=== PATIENT | female | born 1950 | race African-American/Black ===

== ENCOUNTER → 2018-08-18 | Outpatient (CLI) | payer OTHER ==
[~2018-08-18] VITALS: Ht 165.1 cm; Wt 131.5 kg
[~2018-08-18] MED LIST: ALLEGRA-D 12 H1 EAC1 OR; CALCIUM 500 +1 EAC5 OR; COLACE100 MG; DITROPAN XL10 MG PO; FISH OIL 1,001000 M2 PO; FLONASE 0.05%50 MCG NASAL; GLUCOPHAGE500 MG PO; GLUCOSAMINE-CH1 EA33 OR; HYDROCHLOROTHIA25 M1 OR; HYDROCODON-ACE1 EACH OR; LOSARTAN-HCTZ1 EACH PO; MOBIC7.5 MG PO; MULTIVITAMINS1 EAC7 PO; NEURONTIN 300300 M1 PO; OXYBUTYNIN 5 MG5 M1 OR; PERCOCET PO; ROBAXIN 750 MG750 M1 PO; SYNTHROID137 MC1 PO; SYNTHROID137 MCG OR; TRAMADOL 50 MG50 MG OR; TYLENOL EXTRA500 MG PO; ZETIA10 MG PO
--- NOTE | ~2018-08-18 | P ---
[facility] [place] [address] PROCEDURE REPORT Name: ALANNA ELIZABETHMARVA [id number] Admission: 08/18/18 Attend Phys: Ian Hughes Discharge: Date of : 54 Report #: [id number] THIS REPORT FOR: //name// CC: Ian Mcneal MD DATE OF SERVICE: 08/18/2018 PROCEDURE PERFORMED: Colonoscopy. HISTORY OF PRESENT ILLNESS: The patient is a 68-year-old female who presents today for screening colonoscopy. She has had last colonoscopy by Dr. Mccormack in 2011 was essentially normal. She has a family history of colon cancer in a sister. She denies any symptoms at this time. DESCRIPTION OF PROCEDURE: The risks and benefits of the procedure were explained to the patient, those risks including but not limited to bleeding, perforation, the risk of sedation. She understood these risks and gave informed consent. Sedation was given using propofol per anesthesia. Next, a digital rectal exam was initially performed, which was normal. Next, using a standard Olympus colonoscope, the scope was placed in the patient's anus and advanced under direct vision to the cecum. The overall prep was excellent. The cecum and ileocecal valve were normal in appearance. Ascending, transverse, descending and sigmoid colon were all normal. The rectal mucosa was normal. On retroflexion, small nonbleeding internal hemorrhoids were noted. The scope was then withdrawn and the procedure terminated. The patient tolerated the procedure well. IMPRESSION: 1. Small internal hemorrhoids. 2. Otherwise, normal colonoscopy. RECOMMENDATIONS: Repeat colonoscopy in 5 years. Thank you for allowing me to participate in her care. <ELECTRONICALLY SIGNED> By: Ian Michaels MD 08/20/18 0808 [id number] [id number] Ian Michaels MD /nt
== END | disposition home or self-care (01) ==
LOC: GI 08:12
DX: Z12.11 Encounter for screening for malignant neoplasm of colon (principal); K64.8 Other hemorrhoids; Z80.0 Family history of malignant neoplasm of digestive organs; I10 Essential (primary) hypertension; E78.5 Hyperlipidemia, unspecified; K21.9 Gastro-esophageal reflux disease without esophagitis; G47.33 Obstructive sleep apnea (adult) (pediatric); Z98.890 Other specified postprocedural states; Z90.710 Acquired absence of both cervix and uterus; Z96.651 Presence of right artificial knee joint; Z98.51 Tubal ligation status; Z79.899 Other long term (current) drug therapy; Z79.891 Long term (current) use of opiate analgesic
CPT/HCPCS: 62110; 62900

== ENCOUNTER → 2018-09-29 | Outpatient (CLI) | payer OTHER ==
[~2018-09-29] VITALS: Ht 165.1 cm; Wt 133.2 kg
[~2018-09-29] MED LIST changes: +ASPIR 8181 MG PO
--- NOTE | ~2018-09-29 | HPC ---
[facility] [address] [place] [address] PAIN MANAGEMENT CONSULTATION Name: MARVA COLINDRES [id number] Admission: 09/29/18 Attend Phys: Ramiro Pino MD Discharge: Date of : 54 Report #: [id number] THIS REPORT FOR: //name// CC: Ramiro Mcneal DATE OF SERVICE: 09/29/2018 CHIEF COMPLAINT: The pain is beginning to come back in my back like another injection before it gets bad. HISTORY: The patient is a 68-year-old female who has been seen in the pain clinic because of myofascial pain involving her low back area. She has undergone trigger point injection in 05/2018. Notes that she had significant improvement after that. She returns today and feels like another injection would be beneficial. She is experiencing pain which she rates as a 4-5 in the low back area. It exacerbated with activities of daily living such as walking, moving and bending. Feels that medications have been helpful that she ____ and this is beneficial. She has undergone a cardiac scan. She states that after her cardiac scan, it was noted that she did have high level of calcium. She is now being evaluated by cooking show host. She will follow up and undergo additional testing at [facility]. PAST MEDICAL HISTORY: Sleep apnea. ALLERGIES: No known drug allergies. MEDICATIONS: Aspirin 81 mg, fish oil 1000 mg, Flonase 0.05% nasal spray as needed, losartan/hydrochlorothiazide 50/12.5, levothyroxine 137 mcg, Ditropan XL 10 mg, Tylenol Extra Strength 500 mg 2 tabs daily p.r.n., oxycodone 5/325 one p.o. q.6 hours p.r.n., calcium, multivitamin. PAIN CLINIC ASSESSMENT/PQRS: 1. Osteoarthritis, the patient has some right knee surgery. The patient has osteoarthritic changes involving her neck, status post C5 fusion. 2. The patient is not being treated for rheumatoid arthritis. 3. Height 5 feet 5 inches, weight 293 pounds, BMI is 49.9. 4. Vital signs: Blood pressure 136/86, pulse 89, respiratory rate 20, room air saturation 98%. 5. Pain intensity 4-510. 6. Fall risk. The patient has not fallen in the last 3 months. 7. Blood thinner. The patient is not on a blood thinning medication. 8. Hypertension. The patient has been treated for hypertension. 9. Opioids greater than 6 weeks. The patient is not receiving opioid medications through the pain clinic. 10. Risk assessment tool, low [place] [address] PAIN MANAGEMENT CONSULTATION Name: MARVA COLINDRES Room #: REG [place] Escoto#: [id number] Admission: 09/29/18 Attend Phys: Ramiro Pino MD Discharge: Date of : 54 Report #: [id number] 11. Functional assessment tool. 12. Recreational drug use. The patient denies use of recreational drugs. 13. Tobacco. The patient has never smoked. 14. Alcohol: The patient occasionally drinks alcoholic beverages. PHYSICAL EXAMINATION: GENERAL: The patient is a well-developed, somewhat obese black female. She appears her stated age. She is alert and oriented x 3. Her affect is appropriate. Speech is fluent. HEENT: Normocephalic, atraumatic. Extraocular eye muscles intact. Sclerae nonicteric. Mucous membranes are moist. NECK: Without adenopathy or JVD. HEART: Regular rate. ABDOMEN: Protuberant. Bowel sounds present. EXTREMITIES: Upper extremity muscle strength judged to be 5/5 for the major muscle groups in the upper extremity without sensory changes. The patient without significant scoliosis, kyphosis or lordosis. The patient has pain and discomfort in the mid portion of her back in the left as well as the right paraspinous area near the sacrum. The patient has pain and discomfort. The pain, which is similar to that she has experienced in the pain, which is myofascial and improved with an injection in the past. Lower extremity muscle strength is judged to be 5/5 for the major muscle groups in the lower extremity. The patient is able to stand on her toes and heels. She does walk with a slight antalgic gait and does complain of pain and discomfort in lower portion of her back. IMPRESSION: 1. Myofascial pain, low back area improved in the past with myofascial injections. 2. Hypertension. 3. Elevated calcium score on heart exam. The patient to undergo further evaluation at [facility]. 4. Obesity. 5. Hypothyroidism. RECOMMENDATIONS: We discussed treatment options with the patient. At this juncture, she feels that she has continued to have the pain, which was problematic in May. This improved after trigger point injections to the low back area. She would like to proceed with another injection given that the pain improved. She had no complication from the procedure. We discussed the possible complication of the procedure, which could include but are not limited to infection, worsening of pain, no improvement in pain, bleeding, nerve damage and the patient elects to proceed. PROCEDURE NOTE: The patient was placed in the sitting position. She was perpendicular to the bed. She was placed under her feet for stability. The [address] [address] PAIN MANAGEMENT CONSULTATION Name: MARVA COLINDRES Room #: REG [facility] Escoto#: [id number] Admission: 09/29/18 Attend Phys: Ramiro Pino MD Discharge: Date of : 54 Report #: [id number] patient's back was sterilely prepped with a chlorhexidine solution. It was allowed to dry. The left and right low back area was sterilely prepped with a chlorhexidine solution. A 25-gauge needle was then advanced in the area of the left posterior superior iliac spine area with a reproduction of the trigger point near the gluteus italia and latissimus dorsi. Aspiration was negative. A total of 10 mL of 0.5% bupivacaine and 80 mg Depo-Medrol was injected. The patient tolerated the procedure well. The right side was treated in a like fashion. A 25-gauge needle was then advanced to the area of the gluteus italia and latissimus dorsi near the posterior superior iliac spine. Aspiration was negative. The patient states that this did reproduce her discomfort. A total of 10 mL of 0.5% bupivacaine and 80 mg Depo-Medrol was injected. The patient tolerated the procedure well. There were no complications. She remained in the Pain Clinic for an appropriate amount of time. Her pain decreased to 2 at the time of discharge. She will follow up in the future as needed. We would like to thank you for letting us participate in her care. The patient states that she is going to follow up with the Cardiac Department at [facility] to further evaluate the elevated calcium scan. By: 1744 0053 Ramiro Pino MD /nt
[2018-09-29 12:55] VITALS: BP 136/86
--- NOTE | 2018-09-29 13:07 | NUR ---
Pain Clinic Assessment: 1. History of Osteoarthritis: Not Applicable History of Rheumatoid Arthritis: Not Applicable 2. Height: 5 ft. 5 in. 165.1 cm. Weight: 293.6 lb. oz. 133.176 kg. Patient's BMI: 48.9 3. Vital Signs: BP: 136/86 Pulse: 89 Resp: 20 Temp: 02 Sat: 98 ECG Mon: 4. Pain Intensity: 4-5 5. Fall Risk: Dizziness: N Needs help standing or walking: N Fallen in the last 3 months: N Fall risk comments: 6. Patient on Blood Thinner: None 7. History of Hypertension: Y 8. Opioid Therapy greater than 6 weeks: N Opiate Contract Signed: 9. Risk Assessment Tool Provided: 10. Functional Assessment Tool: 11. Recreational Drug Use: Never Drug Type: Tobacco Use: Never Smoker Tobacco Type: Amount or Packs/day: How Many Years: Alcohol Use: Yes Frequency: Quant:
== END | disposition home or self-care (01) ==
LOC: PAIN 11:47
DX: M79.18 Myalgia, other site (principal); I10 Essential (primary) hypertension; E03.9 Hypothyroidism, unspecified; E66.09 Other obesity due to excess calories; E83.52 Hypercalcemia; G47.33 Obstructive sleep apnea (adult) (pediatric); Z79.82 Long term (current) use of aspirin; Z79.891 Long term (current) use of opiate analgesic; Z79.899 Other long term (current) drug therapy; Z98.890 Other specified postprocedural states

== ENCOUNTER → 2018-12-17 | Outpatient (CLI) | payer OTHER ==
[~2018-12-17] VITALS: Ht 165.1 cm; Wt 133.2 kg
[~2018-12-17] MED LIST changes: +ATORVASTATIN CA40 MG PO
--- NOTE | ~2018-12-17 | HPC ---
[facility] [address] [place] [address] PAIN MANAGEMENT CONSULTATION Name: MARVA COLINDRES Room #: REG [facility] Juan.#: [id number] Admission: 12/17/18 ������������������ Attend Phys: Ramiro Pino MD Discharge: ������������������ Date of : 54 Report #: [id number] THIS REPORT FOR: //name// CC: Ramiro Mcneal DATE OF SERVICE: 12/17/2018 CHIEF COMPLAINT: Return of back pain. HISTORY: The patient is a 68-year-old female, who has been followed in the pain clinic. She continues to have pain in her lower back area. She has undergone trigger point injections. She noticed that initially in 2018 the pain improved after the trigger point injection. She continues to have pain at this juncture with still ____. She rates her pain as a 4-5/10. She notes that activities such as walking are more problematic. She describes it as a shooting, pulling, radiating pain. Pain improves with medications and rest. She has returned today for trigger point injection to help improve her pain. CURRENT MEDICATIONS: Aspirin 81 mg, fish oil 1000 mg, Flonase 0.05% nasal spray, losartan/hydrochlorothiazide 50/12.5, levothyroxine 137 mcg, Ditropan XL 10 mg, Tylenol Extra Strength 500 mg 2 tablets daily p.r.n., oxycodone 5/325 one p.o. q.4-6 hours p.r.n., calcium, and multivitamin. ALLERGIES: No known drug allergies. PAIN CLINIC ASSESSMENT AND PQRS: 1. Osteoarthritis. The patient has had surgery on her right knee. She also complains of arthritic changes in her neck. Status post C5 fusion. The patient is not being treated for rheumatoid arthritis. 2. Pain intensity is 6/10. 3. Fall risk. The patient has not fallen in the last 3 months. 4. Blood thinner. The patient is not on a blood thinning medication. 5. Hypertension. The patient is being treated for hypertension. 6. Opioids greater than 6 weeks. The patient uses hydrocodone to help with pain control. 7. Risk assessment tool, low for opioid use. 8. Functional assessment tool. 9. Recreational drug use. The patient denies. 10. Tobacco: The patient has never smoked. 11. Alcohol. The patient drinks 1 alcoholic beverage on special occasions. PHYSICAL EXAMINATION: GENERAL: The patient is a well-developed, well-nourished, obese black female. She appears her stated age. She is alert and oriented x 3. Her affect is appropriate. Speech is fluent. Height is 5 feet 5 inches, weight is [address] [place] [address] PAIN MANAGEMENT CONSULTATION Name: MARVA COLINDRES Room #: REG CL Juan.#: [id number] Admission: 12/17/18 ������������������ Attend Phys: Ramiro Pino MD Discharge: ������������������ Date of : 54 Report #: [id number] pounds, and BMI is 49. VITAL SIGNS: Blood pressure is 159/99, pulse is 63, respiratory rate is 18, and room air saturation is 98%. HEENT: Normocephalic, atraumatic. Extraocular muscles intact. Sclerae nonicteric. Mucous membranes are moist. NECK: Without adenopathy or JVD. HEART: Regular rate. S1, S2. ABDOMEN: Protuberant. Bowel sounds present. EXTREMITIES: Upper extremity muscle strength is judged to be 5/5 for the major muscle groups in the upper extremity. The patient is without significant scoliosis, kyphosis, or lordosis. The patient has pain and discomfort in the lower portion of her back. There is pain in the left and right paraspinous area in the L5 sacral area. Movement increases her pain and discomfort. The patient has trigger points in the low back area. She is able to press on her back and did note where trigger points are in the lower portion of her back in the paraspinous muscles. IMPRESSION: 1. Myofascial pain, low back. 2. Hypertension. 3. Elevated calcium score. 4. Obesity. 5. Hypothyroidism. RECOMMENDATIONS: We have discussed treatment options with the patient. Risks and benefits of a trigger point injection were again reviewed. Possible complications of the procedure could include but are not limited to muscle pain, bleeding, nerve damage and the patient elects to proceed. PROCEDURE NOTE: The patient was assisted in getting on the examination table. She was set perpendicular to the table. A chair was placed under her feet for stability. Her back was sterilely prepped with a Betadine solution and allowed to dry. The left and right posterior paraspinous area in the L5 area were identified. Trigger points were noted. The left area was sterilely prepped. A 25-gauge needle was then advanced into the area of the left paraspinous area. The patient states that this did locate the trigger point. Aspiration was negative. A total of 8 mL of 0.5% bupivacaine and 80 mg of Depo-Medrol was injected. The contralateral side was treated in a like fashion. This area had been sterilely prepped with Betadine. In the paraspinous area near the gluteus italia and latissimus dorsi as was performed on the left side, trigger point was noted. Aspiration was negative. A total of 8 mL of 0.5% bupivacaine and 80 mg of Depo-Medrol was injected. The patient tolerated the procedure well. There were no complications. She remained in the pain clinic for an appropriate amount of time. She will follow up in the future as needed. [place] [address] [place] [address] PAIN MANAGEMENT CONSULTATION Name: MARVA COLINDRES Room #: REG [employer] [facility].#: [id number] Admission: 12/17/18 ������������������ Attend Phys: Ramiro Pino MD Discharge: ������������������ Date of : 54 Report #: [id number] We would like to thank you for letting us to participate in her care. We hope she continues to improve. ��������������������������������������������� ���������������������������������������� By: ��������������������������������������������� [id number] Ramiro Pino MD /CONSTANTINO
[2018-12-17 10:39] VITALS: BP 159/99
--- NOTE | 2018-12-17 10:44 | NUR ---
Pain Clinic Assessment: 1. History of Osteoarthritis: Not Applicable History of Rheumatoid Arthritis: Not Applicable 2. Height: 5 ft. 5 in. 165.1 cm. Weight: 293.6 lb. oz. 133.176 kg. Patient's BMI: 48.9 3. Vital Signs: BP: 159/99 Pulse: 63 Resp: 18 Temp: 02 Sat: 98 ECG Mon: 4. Pain Intensity: 6 5. Fall Risk: Dizziness: N Needs help standing or walking: N Fallen in the last 3 months: N Fall risk comments: 6. Patient on Blood Thinner: None 7. History of Hypertension: Y 8. Opioid Therapy greater than 6 weeks: N Opiate Contract Signed: 9. Risk Assessment Tool Provided: 10. Functional Assessment Tool: 11. Recreational Drug Use: Never Drug Type: Tobacco Use: Never Smoker Tobacco Type: Amount or Packs/day: How Many Years: Alcohol Use: Yes Frequency: Special Occasions Quant: 1
== END | disposition home or self-care (01) ==
LOC: PAIN 06:50
DX: M79.18 Myalgia, other site (principal); I10 Essential (primary) hypertension; E66.9 Obesity, unspecified; E03.9 Hypothyroidism, unspecified; M19.90 Unspecified osteoarthritis, unspecified site; Z68.42 Body mass index [BMI] 45.0-49.9, adult; Z79.82 Long term (current) use of aspirin; Z79.899 Other long term (current) drug therapy

== ENCOUNTER → 2019-08-03 | Outpatient (CLI) | payer OTHER ==
[~2019-08-03] VITALS: Ht 162.6 cm; Wt 134.4 kg
[~2019-08-03] MED LIST changes: +MEDROLDOSEPACK PO; +MOBIC15 MG PO; +VOLTAREN GEL 1100 G2 TOP; +ZANAFLEX4 MG PO
[2019-08-03 12:32] VITALS: BP 155/104
--- NOTE | 2019-08-03 12:38 | NUR ---
Pain Clinic Assessment: 1. History of Osteoarthritis: Not Applicable History of Rheumatoid Arthritis: Not Applicable 2. Height: 5 ft. 4 in. 162.6 cm. Weight: 296.4 lb. oz. 134.447 kg. Patient's BMI: 50.9 3. Vital Signs: BP: 155/104 Pulse: 81 Resp: 16 Temp: 02 Sat: 98 ECG Mon: 4. Pain Intensity: 8 5. Fall Risk: Dizziness: N Needs help standing or walking: Y Fallen in the last 3 months: N Fall risk comments: 6. Patient on Blood Thinner: None 7. History of Hypertension: Y 8. Opioid Therapy greater than 6 weeks: N Opiate Contract Signed: 9. Risk Assessment Tool Provided: LOW 10. Functional Assessment Tool: 11. Recreational Drug Use: Never Drug Type: Tobacco Use: Never Smoker Tobacco Type: Amount or Packs/day: How Many Years: Alcohol Use: Yes Frequency: Quant:
--- NOTE | 2019-08-04 16:10 | HPC ---
[facility] [address] [place] [address] PAIN MANAGEMENT CONSULTATION Name: MARVA COLINDRES Room #: REG [facility] Juan.#: [id number] Admission: 08/03/19 Attend Phys: Maki Arriaga Discharge: Date of : 54 Report #: [id number] THIS REPORT FOR: //name// CC: Maki Arriaga Jennifer Mcneal DATE OF SERVICE: 08/03/2019 CHIEF COMPLAINT: Low back pain, right hip pain and left foot pain. HISTORY OF PRESENT ILLNESS: This is a very pleasant 69-year-old female who returns to the pain clinic today for a refill of her medications. She reports that she recently fell through her deck at home and fractured her foot. She had been in a boot for a significant amount of time, has recently been released from wearing that. She is using a cane though presently to help with ambulation. She reports that she is having some ongoing left foot pain, but most of her pain is located in her back and hip today. She reports her pain is 8/10, mostly a sharp, pulling radiating pain that is worse with standing and walking. She feels that her medications are beneficial. She does use them very sparingly, but has been out for a while since her injury. The patient also reports she was unable to take the meloxicam. It did upset her stomach, but she has been using Voltaren gel that the Emergency Room gave her on her left foot and left knee. She finds this beneficial and is requesting a refill today. ALLERGIES: No known drug allergies. CURRENT LIST OF MEDICATIONS: Oxycodone 5/325 p.r.n., aspirin 81 mg, Lipitor 40 mg at bedtime, Flonase p.r.n., losartan/hydrochlorothiazide daily, Synthroid 137 mcg daily, Tylenol Extra Strength p.r.n. and [place] b.i.d. p.r.n., Voltaren gel p.r.n. PQRS: 1. She has osteoarthritis in her right knee and some arthritic changes in her neck. She denies being treated for rheumatoid arthritis. 2. Height is 5 feet 4 inches, weight is 296, BMI is 50. 3. Vital signs 155/104, pulse is 81, respirations 16, oxygen sat is 98. 4. Pain score is 8/10. 5. Denies dizziness. Using a cane currently and has fallen in the last 3 months. 6. The patient is not on any blood thinners, but does take medicine for hypertension. 7. Opioid therapy is greater than 6 weeks; but she does not have an opioid signed contract on our chart. 8. Risk assessment tool is low. Functional assessment is 40/70. 9. Recreational drug use, she denies. She is not a smoker and occasionally drinks alcohol. [address] [address] PAIN MANAGEMENT CONSULTATION Name: MARVA COLINDRES Room #: REG [facility] Tigist#: [id number] Admission: 08/03/19 Attend Phys: Maki Arriaga Discharge: Date of : 54 Report #: [id number] According to the prescription monitoring system, the patient is filling appropriately for her medications from Dr. Pino. She did fill a small oxycodone script from her surgeon when she fractured her foot. PHYSICAL EXAMINATION: GENERAL: This is a well-developed, well-nourished, morbidly obese 69-year-old female who appears her stated age, placing her current pain score at 8/10. She is alert and orientated and her affect is appropriate. HEENT: Normocephalic, atraumatic. Extraocular eye muscles are intact. Mucous membranes are moist. NECK: Without adenopathy or JVD. EXTREMITIES: Lower extremity strength judged to be 5/5 in all major muscle groups. She is without significant scoliosis, kyphosis or lordosis. She has discomfort in the lower portion of her lumbar spine that radiates into her right hip. She has pain in her left knee that has small amount of edema present. Pain in her left foot with no edema noted. IMPRESSION: 1. Myofascial pain, low back pain. 2. Hypertension. 3. Recent fracture of her left foot with ongoing pain issues. 4. Obesity. PLAN: 1. We discussed treatment options with the patient today. The patient finds trigger points very beneficial that she has had in the past, but she does not feel that currently she is to the point of needing another injection from Dr. Pino, but will call when needed. She is needing refills. She finds the oxycodone very beneficial. Does not take them on a daily basis. She tries to keep active as possible and does not have any daytime sleepiness or constipation issues from this medication. Today refills of 5/325 oxycodone given for #60 pills. This may last the patient several months as has prior. 2. The patient reports she was unable to take many nonsteroidal anti-inflammatories because they do upset her stomach. She has been given a Voltaren gel for her left knee and left ankle in the Emergency Room. We will refill that medication, send that electronically to the pharmacy. The patient encouraged to use this 3 times a day to aid in discomfort. 3. We did discuss the patient's hypertension today, she is on medications and does take them on a daily basis. I encouraged her to try to take her blood pressure daily at home. If it continues to be elevated as it is today at 155/104, she needs to contact her primary doctor to see about adjustment in her [facility] [address] [place] [address] PAIN MANAGEMENT CONSULTATION Name: MARVA COLINDRES Room #: REG [facility] Juan.#: [id number] Admission: 08/03/19 Attend Phys: Maki Arriaga Discharge: Date of : 54 Report #: [id number] medications. She verbalizes understanding. 4. The patient is seen in collaboration with Dr. Mika Pino. <ELECTRONICALLY SIGNED> By: Maki Arriaga 08/04/19 1610 1405 1717 Maki Arriaga /nt
== END ==
LOC: PAIN 06-08 07:04
DX: M79.18 Myalgia, other site (principal); I10 Essential (primary) hypertension; E66.9 Obesity, unspecified

== ENCOUNTER → 2019-09-07 | Outpatient (CLI) | payer OTHER ==
[~2019-09-07] VITALS: Ht 162.6 cm; Wt 130.2 kg
[~2019-09-07] MED LIST changes: +FISH OIL 1,0001 EAC9 PO; +HYDROCHLOROTH12.5 M2 PO; +LOSARTAN POTASS50 MG PO; +SINGULAIR 10 MG10 M1 PO
--- NOTE | ~2019-09-07 | P ---
[facility] [place] [address] PROCEDURE REPORT Name: ALANNA ELIZABETHMARVA Room #: REG [facility]#: [id number] Admission: 09/07/19 Attend Phys: Ian Hughes Discharge: Date of : 54 Report #: [id number] THIS REPORT FOR: //name// CC: Ian Mcneal MD DATE OF SERVICE: 09/07/2019 PROCEDURE PERFORMED: Upper endoscopy with biopsies. HISTORY OF PRESENT ILLNESS: The patient is a 69-year-old female who was seen in the office on 08/30/2019 for routine Hemoccult positive stool. She denies any bright red blood per rectum or melena. She does take 81 mg aspirin. She underwent a colonoscopy by myself last 07/2018, which was normal other than small internal hemorrhoids. Denies any abdominal pain. No dysphagia or heartburn symptoms. Her weight has been stable. No previous history of upper endoscopy. DESCRIPTION OF PROCEDURE: The risks and benefits of the procedure were explained to the patient, those risks including but not limited to bleeding, perforation and the risk of sedation. She understood these risks and gave informed consent. Sedation was given using propofol per anesthesia. Next, using a standard Olympus upper endoscope, the scope was placed in the patient's mouth and advanced under direct vision through the esophagus, stomach and into the second portion of the duodenum. The larynx was normal in appearance. The upper and mid esophagus was normal. In the distal esophagus, a possible short segment of Painter's was noted. Biopsies were obtained. Overall, the gastric mucosa was normal in the fundus and the body. There was a mild gastritis noted in the antrum. No evidence of ulcerations or erosions. No bleeding was noted throughout the exam today. Biopsies were obtained to rule out H. pylori. The pylorus was normal and patent. The duodenal bulb, first and second portion were all normal. The scope was then withdrawn and the procedure terminated. The patient tolerated the procedure well. IMPRESSION: 1. Possible short segments Painter's. 2. Mild gastritis. 3. Otherwise, normal upper endoscopy. RECOMMENDATIONS: 1. Await biopsy results. 2. If biopsies are positive for Painter's, would recommend daily PPI therapy long-term. Would consider a trial of PPI therapy, although there are no signs of bleeding today. Her recent heme positive stool may have been secondary to hemorrhoids. We will await biopsy results. [facility] [address] [place] [address] PROCEDURE REPORT Name: MARVA COLINDRES Room #: REG CLJosé Miguel Escoto#: [id number] Admission: 09/07/19 Attend Phys: Ian Hughes Discharge: Date of : 54 Report #: [id number] Thank you for allowing me to participate in her care. By: 1041 [id number] Ian Michaels MD /nt
--- NOTE | 2019-09-08 15:07 | PATH ---
[facility] [address] [place] [address] PATHOLOGY RPT PROCEDURE Name: ALANNA ELIZABETHARPITA Room #: REG R[facility] Juan.#: [id number] Admission: 09/07/19 Date of : 54 Discharge: Report #: [id number] Path Case #: [id number] [facility] Accession Number: [id number] . 01 Material submitted: . PART A: stomach - BX GASTRITIS PART B: esophagus - BX DISTAL ESOPHAGUS. Modifiers: distal . 01 Clinical history: . Pre-op diagnosis: Heme positive stool Post-op diagnosis: Gastritis, possible Painter's A. R/O H. pylori B. R/O Painter's . 02 Diagnosis: A. Gastric mucosa, gastritis, rule out H. pylori, endoscopic biopsy: - Moderate reactive gastropathy. - Negative for intestinal metaplasia or atrophy. - Negative for Helicobacter pylori (properly controlled immunohistochemical performed). . B. Gastric cardia-type mucosa, distal esophagus, rule out Painter's, endoscopic biopsy: - Moderate chronic inflammation. - Negative for intestinal metaplasia or dysplasia. (IUV:pit; 09/08/2019) QTP 09/08/2019 1154 Local . 02 Electronically signed: . Isabel Matta MD, Pathologist NPI- [id number] . 01 Gross description: . A. The specimen is received in formalin, labeled "Arptia Elizabeth, biopsy gastritis, R/O H. pylori". Received are three segments of pale valdez soft tissue ranging in size from 0.3 to 0.5 cm in maximum dimensions. The specimen is submitted entirely in cassette A1. . B. The specimen is received in formalin, labeled "Arpita Elizabeth, biopsy distal esophagus, R/O Painter's". Received are two segments of pale valdez soft tissue ranging in size from 0.5 to 0.6 cm in maximum dimensions. The specimen is submitted entirely in cassette B1. (CAA; 09/07/2019) QAC/QA 09/07/2019 1907 Local . 02 Pathologist provided ICD-10: K31.9, K20.9 [place] [address] PATHOLOGY RPT PROCEDURE Name: ARPITA COLINDRES Room #: REG CLJosé Miguel Escoto#: [id number] Admission: 09/07/19 Date of : 54 Discharge: Report #: [id number] Path Case #: [id number] . 02 CPT . 547412, 130929, S60037 Specimen Comment: A courtesy copy of this report has been sent to [phone], [phone] Specimen Comment: [phone] Specimen Comment: Report sent to and Performed at: [address], [place] [id number] MD Ezekiel Schofield MD Phone: [phone] Performed at: [address] [id number] MD Isabel Matta MD Phone: [phone]
== END | disposition home or self-care (01) ==
LOC: GI 08:39
DX: R19.5 Other fecal abnormalities (principal); K31.9 Disease of stomach and duodenum, unspecified; K29.70 Gastritis, unspecified, without bleeding; K21.0 Gastro-esophageal reflux disease with esophagitis; I10 Essential (primary) hypertension; E78.5 Hyperlipidemia, unspecified; G47.30 Sleep apnea, unspecified; E03.9 Hypothyroidism, unspecified; Z98.890 Other specified postprocedural states; Z79.899 Other long term (current) drug therapy; Z79.82 Long term (current) use of aspirin; Z96.651 Presence of right artificial knee joint; Z98.51 Tubal ligation status
CPT/HCPCS: 62110; 62900

== ENCOUNTER → 2019-10-05 | Outpatient (CLI) | payer OTHER ==
[~2019-10-05] VITALS: Ht 167.6 cm; Wt 130.2 kg
[2019-10-05 14:06] VITALS: BP 154/89
--- NOTE | 2019-10-05 14:25 | NUR ---
Pain Clinic Assessment: 1. History of Osteoarthritis: BACK KNEES History of Rheumatoid Arthritis: Not Applicable 2. Height: 5 ft. 4 in. 167.6 cm. Weight: 287.0 lb. oz. 130.183 kg. Patient's BMI: 46.3 3. Vital Signs: BP: 154/89 Pulse: 82 Resp: 20 Temp: 02 Sat: 99 ECG Mon: 4. Pain Intensity: 7 5. Fall Risk: Dizziness: N Needs help standing or walking: N Fallen in the last 3 months: N Fall risk comments: 6. Patient on Blood Thinner: None 7. History of Hypertension: Y 8. Opioid Therapy greater than 6 weeks: N Opiate Contract Signed: 9. Risk Assessment Tool Provided: LOW 10. Functional Assessment Tool: 11. Recreational Drug Use: Never Drug Type: Tobacco Use: Never Smoker Tobacco Type: Amount or Packs/day: How Many Years: Alcohol Use: Yes Frequency: Special Occasions Quant: 1-2
--- NOTE | 2019-10-06 10:06 | HPC ---
[facility] [address] [place] [address] PAIN MANAGEMENT CONSULTATION Name: MONDRAGON CLARAMARVA Room #: REG [facility]ITAL[facility].#: [id number] Admission: 10/05/19 Attend Phys: Maki Arriaga Discharge: Date of : 54 Report #: [id number] THIS REPORT FOR: //name// CC: Maki Arriaga Jennifer Mcneal DATE OF SERVICE: 10/05/2019 CHIEF COMPLAINT: Low back pain and bilateral knee pain. HISTORY OF PRESENT ILLNESS: This is a very pleasant 69-year-old female who returns to the pain clinic for refill of her medications. We did last see her in July and at that time, prescribed oxycodone 5/325. The patient takes these very sparingly, not requiring one a day for her back and knee pain. She feels that this is an aching, dull pain that occasionally will be sharp and stabbing, especially when she is walking or standing for prolonged periods of time. She is reporting her pain score however today as 7/10. Today, she would like refills of her medication. ALLERGIES: No known drug allergies. CURRENT LIST OF MEDICATIONS: Fish oil, Singulair, hydrochlorothiazide, losartan, oxycodone 5/325 p.r.n., Lipitor, aspirin, Flonase, Synthroid, Tylenol and Os-[place]. PQRS: 1. The patient has a history of osteoarthritis in her back and knees. Denies any rheumatoid arthritis. 2. Height is 5 feet 4 inches, weight is 287, BMI is 46. 3. Vital signs 154/89, pulse is 82, respirations 20, oxygen sat is 99. 4. Pain score is 7/10. 5. Denies dizziness, does not need help walking or standing, has not fallen in the last 3 months. 6. The patient is not on any blood thinners, but does take medicine for hypertension. Opioid therapy is greater than 6 weeks; therefore, an opioid signed contract is on the chart. Her risk assessment is low. Functional assessment is 40/70. 7. Recreational drug use, she denies. She is not a smoker and occasionally drinks alcohol. According to the prescription monitoring system, the patient is due to fill her prescriptions. She last filled them in July. PHYSICAL EXAMINATION: GENERAL: This is a well-developed, well-nourished, morbidly obese 69-year-old female who appears her stated age, placing her current pain score at 7/[place] [address] PAIN MANAGEMENT CONSULTATION Name: MARVA COLINDRES Room #: REG CLJosé Miguel Escoto#: [id number] Admission: 10/05/19 Attend Phys: Maki Arriaga Discharge: Date of : 54 Report #: [id number] has a affect that is appropriate. NECK: Without adenopathy or JVD. HEENT: Normocephalic, atraumatic. Extraocular eye muscles are intact. MUSCULOSKELETAL: Without significant scoliosis, kyphosis or lordosis. She has tenderness in her bilateral knees with no edema present. She has pain in the lower portion of her lumbar spine and tender in her paraspinal muscles. IMPRESSION: 1. Myofascial pain. 2. Low back pain. 3. Hypertension. 4. Bilateral knee pain. 5. Obesity. PLAN: 1. We discussed treatment options with the patient today. The patient does find the Voltaren gel beneficial in controlling some of her knee pain. She does use this very sparingly because she says that it is very costly. I encouraged the patient to look at jbiv-xrj-cozpytk options such as Salonpas or diclofenac that is filled pglt-yeg-dovhvkx. 2. We will refill her oxycodone 5/325, #60. This medication she takes very sparingly and has lasted her greater than 2 months. 3. We gave the patient as script for physical therapy to aid in strengthening her lower extremities. 4. The patient is seen in collaboration with Dr. Mika Pino today. The patient will return as needed. <ELECTRONICALLY SIGNED> By: Maki Arriaga 10/06/19 1006 1611 [id number] Maki Arriaga /ariana
== END ==
LOC: PAIN 10-01 15:03
DX: M79.18 Myalgia, other site (principal); M54.5 Low back pain; I10 Essential (primary) hypertension; M25.561 Pain in right knee; M25.562 Pain in left knee; E66.09 Other obesity due to excess calories

== ENCOUNTER → 2020-05-09 | Outpatient (CLI) | payer OTHER ==
[~2020-05-09] VITALS: Ht 165.1 cm; Wt 129.7 kg
[~2020-05-09] MED LIST changes: +MELOXICAM7.5 MG PO; +OXYCODONE-ACET1 EACH PO
[2020-05-09 09:32] VITALS: BP 168/92
--- NOTE | 2020-05-09 09:36 | NUR ---
Pain Clinic Assessment: 1. History of Osteoarthritis: BACK KNEES History of Rheumatoid Arthritis: Not Applicable 2. Height: 5 ft. 5 in. 165.1 cm. Weight: 286.0 lb. oz. 129.729 kg. Patient's BMI: 47.6 3. Vital Signs: BP: 168/92 Pulse: 79 Resp: 18 Temp: 02 Sat: 97 ECG Mon: 4. Pain Intensity: 6 5. Fall Risk: Dizziness: N Needs help standing or walking: N Fallen in the last 3 months: N Fall risk comments: 6. Patient on Blood Thinner: None 7. History of Hypertension: Y 8. Opioid Therapy greater than 6 weeks: N Opiate Contract Signed: 9. Risk Assessment Tool Provided: LOW 10. Functional Assessment Tool: 11. Recreational Drug Use: Never Drug Type: Tobacco Use: Never Smoker Tobacco Type: Amount or Packs/day: How Many Years: Alcohol Use: Yes Frequency: Special Occasions Quant:
--- NOTE | 2020-05-10 10:02 | HPC ---
[facility] [address] [place] [address] PAIN MANAGEMENT CONSULTATION Name: MARVA COLINDRES Room #: REG [facility] [id number] Admission: 05/09/20 Attend Phys: Maki Arriaga Discharge: Date of : 54 Report #: [id number] THIS REPORT FOR: cc: Jennifer Mcneal MD,Jennifer Arriaga,Maki JESUS ~ CC: Maki Mcneal DATE OF SERVICE: 05/09/2020 CHIEF COMPLAINT: Low back pain, bilateral knee pain. HISTORY OF PRESENT ILLNESS: This is a very pleasant 70-year-old black female who returns to the pain clinic today to discuss her ongoing pain issues. Today, the patient is talking about low back pain. She states that she is also having some knee pain as well as bilateral hand pain, especially in her thumbs. She feels like this is arthritic in nature; complaining of an aching, dull pain. At times, it may be sharp and stabbing, rating her pain score today at 6/10. We have prescribed oxycodone for her in the past that she takes very sparingly. She believes this is beneficial, but she does not want to become addicted to her pain medicines. She only uses it on very painful days. Her last visit with us of her was in September. She is very sporadic in her use of this medication. Today, she would like refills of her opioids. She denies any problems with constipation or daytime somnolence since she does take this on a very rare basis. ALLERGIES: No known drug allergies. CURRENT LIST OF MEDICATIONS: Oxycodone 5/325, hydrochlorothiazide, losartan, atorvastatin, aspirin, Flonase, levothyroxine, Tylenol, Os-[place]. PATIENT'S PQRS: 1. She has arthritic changes in her back, knees and hands. Denies any rheumatoid arthritis. 2. Height is 5 feet 5 inches, weight is 286, BMI is 47. Vital signs 168/92, pulse is 79, respirations 18, oxygen sat is 97%. Pain score is 6/10. 3. Fall risk. Denies dizziness, does not need help walking or standing, has not fallen in the last 3 months. The patient is not on any blood thinners, does have a history of hypertension. Her opioid therapy is not greater than 6 weeks. She does not have an opioid signed contract. Risk assessment tool is low. Functional assessment is 40/70. 4. Recreational drug use, she denies. She is not a smoker [place] [address] PAIN MANAGEMENT CONSULTATION Name: MARVA COLINDRES Room #: REG [facility] Tigist#: [id number] Admission: 05/09/20 Attend Phys: Maki Arriaga Discharge: Date of : 54 Report #: [id number] According to the prescription monitoring system, her last fill was greater than 6 months ago, which is appropriate since her last visit was in September with us. PHYSICAL EXAMINATION: GENERAL: This is alert and orientated, well-developed, well-nourished black female who appears her stated age, placing her current pain score today at 6/10. HEENT: Normocephalic, atraumatic. Extraocular eye muscles are intact. Mucous membranes are moist. She is wearing a mask. NECK: Without adenopathy or JVD. MUSCULOSKELETAL: She is without significant scoliosis, kyphosis or lordosis. She has tenderness in her bilateral hands, especially her thumbs bilaterally and knees with increased pain upon ambulation. She has tenderness in the lumbar portion of her spine with no radicular symptoms. Her lower extremity strength is judged to be symmetrical at 5/5. IMPRESSION: 1. Myofascial pain. 2. Low back pain. 3. Osteoarthritis. 4. Hypertension. 5. Bilateral knee pain. We reviewed the fact that opiate medications are being used to provide analgesia adequate to support activities of daily living, not attempting to achieve a specific pain score on the 0-10 Visual Analog Scale. The current opiate medications are providing sufficient analgesia to allow the patient to participate in activities of daily living. The patient is not exhibiting any aberrant behavior suggestive of drug diversion. The patient is not having any adverse reactions to medications. The patient is not suffering from daytime somnolence or mental acuity changes. The patient is managing opiate-induced constipation with appropriate pjba-udq-wvesako agents and dietary considerations. The patient was counseled on concern for caution with operating a motor vehicle while using opiate medications. A physical exam was performed and the patient's functional status was evaluated. All patients with back pain were advised against the bed rest greater than 4 days and were advised to return to normal activities. Pain score assessment was noted and the treatment plan was reviewed with the patient. All current medications, both prescribed and OTC were reviewed and reconciled on the electronic medical record. Tobacco screening was accomplished and smoking cessation was advised when indicated. BMI was noted and diet/exercise modification was recommended for all patients following outside normal parameters. I reviewed with the patient today their responsibilities to safeguard prescription medications, reviewed their responsibility to utilize medications [address] [address] PAIN MANAGEMENT CONSULTATION Name: MARVA COLINDRES Room #: REG CLI Tigist#: [id number] Admission: 05/09/20 Attend Phys: Maki Arriaga Discharge: Date of : 54 Report #: [id number] only as prescribed by the physician. They are to seek and receive pain medications only from 1 physician group ( [facility]). They are to use 1 pharmacy and keep the clinic informed if they change pharmacies. Their responsibilities include making followup visits in a timely fashion and to avoid abrupt discontinuation of medication usage. Their responsibilities further include bringing their medications (bottles from the pharmacy with residual pills) to the visit for possible confirmation of pill counts and the patient understands it is their responsibility to submit to random drug screens to ensure both that the medications prescribed are present, and that no other controlled substances are present. All prescriptions provided today were generated electronically. PLAN: 1. We discussed treatment options with the patient today. The patient is complaining of increased pain in her hands and knees. We had tried Voltaren in the past, but she felt like it was too expensive. I did explain to her that it is nycj-tcg-ipmmsga now, but we may try a systemic medication to see if it will help her multiple joints, offering to have her trial meloxicam 7.5 mg tablets once a day. The patient may take this on an as needed basis, but I did encourage her to take it for at least 1-week to see if we can calm down some of her pain issues. The patient is willing to try this. We will send a 30-day supply to her local pharmacy. If it is beneficial, we will call in a 90-day supply. The patient states that she has had some GI issues in the past with some medications. I encouraged her to call us and stop the medicine if any of those symptoms arise. I reminded her not to take ibuprofen, Advil or Aleve when she is taking this medicine. 2. We will have Dr. Mika Pino send electronically her oxycodone , #60. Again, she takes these very sparingly and last usually 6-8 months. 3. The patient is seen in collaboration with Dr. Pino, who did see the patient as well today. <ELECTRONICALLY SIGNED> By: Maki Arriaga 05/10/20 1002 1023 1220 Maki Arriaga /nt
== END ==
LOC: PAIN 06:51
PROVIDERS: ATTEND Clinical Nurse Specialist Adult Health
DX: M54.5 Low back pain (principal); M25.561 Pain in right knee; M25.562 Pain in left knee; M79.10 Myalgia, unspecified site; M19.90 Unspecified osteoarthritis, unspecified site; I10 Essential (primary) hypertension

== ENCOUNTER → 2020-08-08 | Outpatient (CLI) | payer OTHER ==
[~2020-08-08] VITALS: Ht 165.1 cm; Wt 133.1 kg
[~2020-08-08] MED LIST changes: +FOSAMAX 70 MG T70 MG PO; +METFORMIN HYDRO25 GM; +NEURONTIN300 MG PO; +PERCOCET 5-3251 EACH PO; +PRENATAL GUMMI1 EACH; +PROTONIX40 M2 PO
[2020-08-08 10:27] VITALS: BP 127/85
--- NOTE | 2020-08-08 10:49 | NUR ---
Pain Clinic Assessment: 1. History of Osteoarthritis: BACK KNEES History of Rheumatoid Arthritis: Not Applicable 2. Height: 5 ft. 5 in. 165.1 cm. Weight: 293.4 lb. oz. 133.086 kg. Patient's BMI: 48.8 3. Vital Signs: BP: 127/85 Pulse: 86 Resp: 16 Temp: 02 Sat: 100 ECG Mon: 4. Pain Intensity: 7 5. Fall Risk: Dizziness: N Needs help standing or walking: N Fallen in the last 3 months: N Fall risk comments: 6. Patient on Blood Thinner: None 7. History of Hypertension: Y 8. Opioid Therapy greater than 6 weeks: Y Opiate Contract Signed: 9. Risk Assessment Tool Provided: LOW 10. Functional Assessment Tool: 11. Recreational Drug Use: Never Drug Type: Tobacco Use: Never Smoker Tobacco Type: Amount or Packs/day: How Many Years: Alcohol Use: No Frequency: Quant:
--- NOTE | 2020-08-23 14:52 | HPC ---
[facility] [address] [address] PAIN MANAGEMENT CONSULTATION Name: MARVA COLINDRES Room #: REG R[facility] Martinez.#: [id number] Admission: 08/08/20 Attend Phys: Ramiro Pino MD Discharge: Date of : 54 Report #: [id number] THIS REPORT FOR: cc: Jennifer Mcneal MD,Jennifer Pino,Ramiro Capellan MD ~ CC: Ramiro Mcneal MD DATE OF SERVICE: 08/08/2020 CHIEF COMPLAINT: Low back pain, pain in both knees, neck and hands. HISTORY: The patient is a 70-year-old female who has been followed in the pain clinic because of chronic pain. She has returned today for renewal of her medications. She has been using oxycodone. She finds that this medication has been quite helpful. She has used nonsteroidal anti-inflammatory medications. She has been unable to use this medication secondary to reflux. She rates her pain as a 7/8. Has pain in the low back area. Has pain in her knees and neck area. Has bilateral hand pain as well as pain involving her thumbs. Notes that walking activities, standing are more problematic. Notes increased pain and discomfort when she is using her hands. Medications have been beneficial and she has returned to the pain clinic for renewal of these medications. She has been having chronic pain since 2018. She also has some pain in her right hip. ALLERGIES: No known drug allergies. CURRENT MEDICATIONS: Aspirin, fish oil 1000 mg, Flonase 0.05% nasal spray, losartan/hydrochlorothiazide 50/12.5, levothyroxine 137 mcg, Ditropan XL 10 mg, Tylenol Extra Strength 2 tablets daily, oxycodone 5 mg 1 p.o. q. 4-6 hours p.r.n., calcium, and multivitamins. PAIN CLINIC ASSESSMENT AND PQRS: 1. The patient does have some osteoarthritic changes. He has had surgery on her right knee. She also has arthritic changes in her neck and has status post C5 fusion. The patient is not being treated for rheumatoid arthritis. 2. Height 5 feet 5 inches, weight 293 pounds, BMI is 48. 3. Vital Signs: Blood pressure 127/85, pulse 86, respiratory rate 16, room air saturation 100%. 4. Pain intensity 03/30. 5. Fall history: The patient has not fallen since we saw her last. 6. Blood thinner. The patient is not on a blood thinning medication. 7. Hypertension. The patient is being treated for hypertension. 8. Opioids greater than 6 weeks. The patient receives [place] [address] PAIN MANAGEMENT CONSULTATION Name: MARVA COLINDRES Room #: REG CL Juan.#: [id number] Admission: 08/08/20 Attend Phys: Ramiro Pino MD Discharge: Date of : 54 Report #: [id number] clinic. 9. Risk assessment tool, low. 10. Functional assessment tool 40/70. 11. Recreational drug use: The patient denies. 12. Alcohol: The patient denies frequent use of alcoholic beverages. PHYSICAL EXAMINATION: GENERAL: The patient is a well-developed, well-nourished, somewhat obese black female, appears her stated age. She is alert and oriented x 3. Her affect is appropriate. Speech is fluent. HEENT: Normocephalic, atraumatic. Extraocular eye muscles intact. The patient is wearing a facial covering. NECK: Without adenopathy. Some decreased range of motion. HEART: Regular rate. LUNGS: Clear. ABDOMEN: Protuberant. Bowel sounds present. EXTREMITIES: Upper extremity muscle strength judged to be 5/5 for the major muscle groups in the upper extremity. The patient does complain of some pain and discomfort involving her hands. She is without significant scoliosis, kyphosis or lordosis. The patient has some pain in the lower portion of her back in the area of the posterior superior iliac spines. Does have some trigger points in this area. IMPRESSION: 1. Myofascial pain, low back on the right side. 2. Hypertension. 3. Elevated calcium score. 4. Obesity. 5. Hypothyroidism. RECOMMENDATIONS: We discussed treatment options with the patient. Risk and benefits of opioid medications have been discussed. The patient is aware that opioid medications can be problematic in certain people. They can develop addiction. The patient is not showing signs of addiction. We will renew the patient's medication. A script for her medications have been rewritten. She will call us if she has any problems. We would like to thank you for letting us participate in her care. We hope she continues to improve. The patient will take gabapentin 300 mg 1 tablet p.o. and increase it to t.i.d. A dosing scale has been provided. The patient will take 1 tablet in the morning for 7 days, followed by one tablet in the morning and evening for 7 days, then t.i.d. The patient will also continue with hydrocodone 5 mg 1 p.o. t.i.d., a total of 90 tablets have been provided. The patient will call us if she has any concerns. [address] [address] PAIN MANAGEMENT CONSULTATION Name: CHADD COLINDRESNE Room #: REG CLJosé Miguel Martinez.#: [id number] Admission: 08/08/20 Attend Phys: Ramiro Pino MD Discharge: Date of : 54 Report #: [id number] We would like to thank you for letting us participate in her care. We hope she continues to improve. <ELECTRONICALLY SIGNED> By: Ramiro Pino MD 08/23/20 1452 0928 1114 Ramiro Pino MD /[facility]
== END ==
LOC: PAIN 06:51
PROVIDERS: ATTEND Anesthesiology Pain Medicine
DX: M54.5 Low back pain (principal); G89.4 Chronic pain syndrome; M79.10 Myalgia, unspecified site; I10 Essential (primary) hypertension; E66.9 Obesity, unspecified; E03.9 Hypothyroidism, unspecified; E83.52 Hypercalcemia; Z79.899 Other long term (current) drug therapy

== ENCOUNTER → 2020-11-14 | Outpatient (CLI) | payer OTHER ==
[~2020-11-14] VITALS: Ht 165.1 cm; Wt 135.3 kg
[2020-11-14 13:13] VITALS: BP 147/97
--- NOTE | 2020-11-14 13:20 | NUR ---
Pain Clinic Assessment: 1. History of Osteoarthritis: BACK KNEES History of Rheumatoid Arthritis: Not Applicable 2. Height: 5 ft. 5 in. 165.1 cm. Weight: 298.2 lb. oz. 135.263 kg. Patient's BMI: 49.6 3. Vital Signs: BP: 147/97 Pulse: 89 Resp: 18 Temp: 02 Sat: 99 ECG Mon: 4. Pain Intensity: 9 5. Fall Risk: Dizziness: N Needs help standing or walking: N Fallen in the last 3 months: N Fall risk comments: 6. Patient on Blood Thinner: None 7. History of Hypertension: Y 8. Opioid Therapy greater than 6 weeks: Y Opiate Contract Signed: 9. Risk Assessment Tool Provided: LOW 10. Functional Assessment Tool: 11. Recreational Drug Use: Never Drug Type: Tobacco Use: Never Smoker Tobacco Type: Amount or Packs/day: How Many Years: Alcohol Use: No Frequency: Quant:
== END ==
LOC: PAIN 06:55
PROVIDERS: ATTEND Anesthesiology Pain Medicine
DX: M48.061 Spinal stenosis, lumbar region without neurogenic claudication (principal); M25.551 Pain in right hip; E66.01 Morbid (severe) obesity due to excess calories; E03.9 Hypothyroidism, unspecified; I10 Essential (primary) hypertension; E83.52 Hypercalcemia; Z88.8 Allergy status to other drugs, medicaments and biological substances; Z79.899 Other long term (current) drug therapy

== ENCOUNTER → 2021-01-23 | Outpatient (CLI) | payer OTHER ==
[~2021-01-23] VITALS: Ht 165.1 cm; Wt 136.5 kg
[~2021-01-23] MED LIST changes: +ASA81BEC PO
[2021-01-23 12:43] VITALS: BP 138/77
--- NOTE | 2021-01-23 12:56 | NUR ---
Pain Clinic Assessment: 1. History of Osteoarthritis: BACK KNEES History of Rheumatoid Arthritis: Not Applicable 2. Height: 5 ft. 5 in. 165.1 cm. Weight: 301.0 lb. oz. 136.533 kg. Patient's BMI: 50.1 3. Vital Signs: BP: 138/77 Pulse: 81 Resp: 16 Temp: 02 Sat: 100 ECG Mon: 4. Pain Intensity: 3-4 5. Fall Risk: Dizziness: N Needs help standing or walking: N Fallen in the last 3 months: Y Fall risk comments: 6. Patient on Blood Thinner: None 7. History of Hypertension: Y 8. Opioid Therapy greater than 6 weeks: Y Opiate Contract Signed: 9. Risk Assessment Tool Provided: LOW-0 10. Functional Assessment Tool: 11. Recreational Drug Use: Never Drug Type: Tobacco Use: Never Smoker Tobacco Type: Amount or Packs/day: How Many Years: Alcohol Use: No Frequency: Quant:
--- NOTE | 2021-01-24 07:39 | HPC ---
[facility] [address] [place] [address] PAIN MANAGEMENT CONSULTATION Name: MARVA COLINDRES [id number] Admission: 01/23/21 Attend Phys: Maki Arriaga Discharge: Date of : 54 Report #: [id number] THIS REPORT FOR: cc: Jennifer Mcneal MD,Jennifer Arriaga,Maki JESUS ~ DOC #: [id number] cc: Mika Pino M.D. DATE OF SERVICE: 01/23/2021 CHIEF COMPLAINT: Low back pain and right hip pain. HISTORY OF PRESENT ILLNESS: This is a very pleasant 70-year-old female who returns to the Pain Clinic today for renewal of her medications. Today, the patient is reporting a pain score of 3-4, mostly located in her low back that radiates into her knees and her right hip. Today, she is also complaining of some tenderness in her hands. The patient reports her pain as a 3-4/10 today as an aching, sharp, stabbing sensation with some numbness. She reports walking and standing for any prolonged period of time does aggravate her pain. She believes her medications are very beneficial, taking gabapentin one time at bedtime and averaging one oxycodone 5/325 a day. The patient reports she had tried meloxicam to help with some of her arthritic changes, it does upset her stomach quite significantly. She reports having to be very careful how she takes her medication and is not able to take anything on an empty stomach. She reports having an EGD last year that showed gastritis. ALLERGIES: No known drug allergies. CURRENT LIST OF MEDICATIONS: Aspirin, oxycodone 5/325 p.r.n., gabapentin 300 mg at bedtime, Fosamax, gummies, Protonix, hydrochlorothiazide, losartan, atorvastatin, Flonase, Synthroid, Tylenol Extra Strength, and calcium. PQRS: 1. She has a history of osteoarthritis in her back and knees. Denies any rheumatoid arthritis. 2. Height is 5 feet 5 inches, weight is 301, BMI is 50. 3. Vital signs: Blood pressure 138/77, pulse is 81, respirations 16, oxygen sat is 100. 4. Pain score is 3-4. 5. Denies dizziness. Does not need help walking or standing, has fallen in the last 3 months. 6. Patient is not on any blood thinners. She does take medicine for hypertension. [facility] [address] [place] [address] PAIN MANAGEMENT CONSULTATION Name: MARVA COLINDRES [id number]: 01/23/21 Attend Phys: Maki Arriaga Discharge: Date of : 54 Report #: [id number] 7. Opioid therapy is greater than six weeks; therefore, an opioid signed contract will be signed today. 8. Risk assessment is low. Functional assessment is 40/70. 9. Recreational drug use, they deny. She is not a smoker and does not drink alcohol. According to the prescription monitoring system, the patient last filled her medication on 11/14/2020, which is appropriate filling them at [facility]. Her morphine milliequivalent is 7.5 MMEs per day, if she averages 1 pill. PHYSICAL EXAMINATION: GENERAL: This is a well-developed, well-nourished, obese black female. She is alert and oriented with a good historian, placing her current pain score today at 3-4. HEENT: Normocephalic, atraumatic. Extraocular eye muscles are intact. She is wearing a facial covering. NECK: Without adenopathy or JVD. MUSCULOSKELETAL: The patient is without significant scoliosis, kyphosis, or lordosis. Muscle strength in her upper and lower extremities is symmetrical at 5/5. She has an antalgic gait, discomfort in her lumbosacral region that radiates into her right leg following the L4-L5 dermatomal distribution. IMPRESSION: 1. Myofascial pain in the low back. 2. Nznfwc-yt-nwbphtwo central spinal stenosis at the L4-L5 level and grade 1 anterolisthesis. 3. Hypertension. 4. Morbid obesity. 5. Osteoarthritis. We reviewed the fact that opiate medications are being used to provide analgesia adequate to support activities of daily living, not attempting to achieve a specific pain score on the 0-10 Visual Analog Scale. The current opiate medications are providing sufficient analgesia to allow the patient to participate in activities of daily living. The patient is not exhibiting any aberrant behavior suggestive of drug diversion. The patient is not having any adverse reactions to medications. The patient is not suffering from daytime somnolence or mental acuity changes. The patient is managing opiate-induced constipation with appropriate rrfn-ltc-dzxyjfq agents and dietary considerations. The patient was counseled on concern for caution with operating a motor vehicle while using opiate medications. PLAN: 1. We discussed treatment options with the patient today. We discussed her gabapentin. The patient has been in the past utilizing this on as needed basis in the past month when she had increased pain. She started taking it every [facility] [address] [place] [address] PAIN MANAGEMENT CONSULTATION Name: MARVA COLINDRES Room #: REG [facility] sEcoto#: [id number] Admission: 01/23/21 Attend Phys: Maki Arriaga Discharge: Date of : 54 Report #: [id number] night and has found more benefit. She does not experience any side effects of daytime somnolence as a result of this medication. I did explain to the patient that she will have less side effects that she takes it on a regular basis as she has been doing. If in the future, her pain becomes more severe with radicular symptoms, she may increase this medication to 2 tablets a day. No medication is needed to be sent today due to her decreased usage. 2. The patient finds oxycodone 5/325 beneficial in helping reduce her pain, averaging 1 tablet a day. We will continue her on this medication. Reminding her, she does have more severe day, she may take an additional tablet or less pain, use less than one a day. Scripts will be sent electronically by Dr. Pino for oxycodone 5/325, #90. 3. We will have the patient sign an opioid agreement. I explained this to the patient in detail. She is not to get any opioids from other providers, which she has not done, and continue to have medications only from our office. Time spent with the patient in consultation, reviewing recent studies, clinical notes and physician reports, physical examination and correlation of physical findings and medical documentation to determine possible treatments, 16 minutes. Time spent in preparation for appointment reviewing prescription monitoring reports, reviewing previous records and proposed treatment options and reviewing current medications, 5 minutes. Time spent preparing and sending electronic prescriptions, documentation of visit, and plan of treatment with collaborating physician, Dr. Mika Pino, 5 minutes. Total time spent 26 minutes. TOÑITO Knutson/José Miguel <ELECTRONICALLY SIGNED> By: Maki Arriaga 01/24/21 [id number] Maki Arriaga /nt
== END ==
LOC: PAIN 01-16 12:23
PROVIDERS: ATTEND Clinical Nurse Specialist Adult Health
DX: M48.061 Spinal stenosis, lumbar region without neurogenic claudication (principal); M25.551 Pain in right hip; I10 Essential (primary) hypertension; E66.01 Morbid (severe) obesity due to excess calories

== ENCOUNTER → 2021-05-01 | Outpatient (CLI) | payer OTHER ==
[~2021-05-01] VITALS: Ht 162.6 cm; Wt 136.5 kg
[2021-05-01 10:47] VITALS: BP 140/74
--- NOTE | 2021-05-01 10:51 | NUR ---
Pain Clinic Assessment: 1. History of Osteoarthritis: BACK KNEES History of Rheumatoid Arthritis: Not Applicable 2. Height: 5 ft. 4 in. 162.6 cm. Weight: 301.0 lb. oz. 136.533 kg. Patient's BMI: 51.6 3. Vital Signs: BP: 140/74 Pulse: 86 Resp: 16 Temp: 02 Sat: 97 ECG Mon: 4. Pain Intensity: 7 5. Fall Risk: Dizziness: N Needs help standing or walking: N Fallen in the last 3 months: N Fall risk comments: 6. Patient on Blood Thinner: None 7. History of Hypertension: Y 8. Opioid Therapy greater than 6 weeks: Y Opiate Contract Signed: 9. Risk Assessment Tool Provided: LOW-0 10. Functional Assessment Tool: 11. Recreational Drug Use: Never Drug Type: Tobacco Use: Never Smoker Tobacco Type: Amount or Packs/day: How Many Years: Alcohol Use: No Frequency: Quant:
== END ==
LOC: PAIN 07:09
PROVIDERS: ATTEND Anesthesiology Pain Medicine
DX: Z76.0 Encounter for issue of repeat prescription (principal); M54.5 Low back pain; M25.561 Pain in right knee; M25.562 Pain in left knee; G89.29 Other chronic pain; Z79.899 Other long term (current) drug therapy

== ENCOUNTER → 2021-07-31 | Outpatient (CLI) | payer OTHER ==
[~2021-07-31] VITALS: Ht 162.6 cm; Wt 137.1 kg
[~2021-07-31] MED LIST changes: +OLMESARTAN MEDO40 MG PO
[2021-07-31 10:51] VITALS: BP 120/94
--- NOTE | 2021-07-31 11:03 | NUR ---
Pain Clinic Assessment: 1. History of Osteoarthritis: BACK KNEES History of Rheumatoid Arthritis: Not Applicable 2. Height: 5 ft. 4 in. 162.6 cm. Weight: 302.2 lb. oz. 137.077 kg. Patient's BMI: 51.8 3. Vital Signs: BP: 120/94 Pulse: 70 Resp: 16 Temp: 02 Sat: 99 ECG Mon: 4. Pain Intensity: 9 5. Fall Risk: Dizziness: N Needs help standing or walking: Y Fallen in the last 3 months: N Fall risk comments: 6. Patient on Blood Thinner: None 7. History of Hypertension: Y 8. Opioid Therapy greater than 6 weeks: Y Opiate Contract Signed: 9. Risk Assessment Tool Provided: LOW-0 10. Functional Assessment Tool: 11. Recreational Drug Use: Never Drug Type: Tobacco Use: Never Smoker Tobacco Type: Amount or Packs/day: How Many Years: Alcohol Use: No Frequency: Quant:
== END ==
LOC: PAIN 10:23
PROVIDERS: ATTEND Anesthesiology Pain Medicine
DX: M51.26 Other intervertebral disc displacement, lumbar region (principal); M25.78 Osteophyte, vertebrae; M48.061 Spinal stenosis, lumbar region without neurogenic claudication; M79.18 Myalgia, other site; I10 Essential (primary) hypertension; E03.9 Hypothyroidism, unspecified; R93.1 Abnormal findings on diagnostic imaging of heart and coronary circulation; E66.01 Morbid (severe) obesity due to excess calories; Z79.82 Long term (current) use of aspirin; Z79.899 Other long term (current) drug therapy; Z96.651 Presence of right artificial knee joint